=== PATIENT | female | born 1995 | race Two or more races ===

== ENCOUNTER → 2025-03-19 | Outpatient (REF) | payer BC ==
[2025-03-21 15:47] LABS: HPV APTIMA Not Detected (Not Detected)
== END ==
LOC: M PLALAB 10:44
PROVIDERS: ATTEND Obstetrics & Gynecology
DX: Z30.430 Encounter for insertion of intrauterine contraceptive device (principal); Z12.4 Encounter for screening for malignant neoplasm of cervix; R87.610 Atypical squamous cells of undetermined significance on cytologic smear of cervix (ASC-US)